=== PATIENT | female | born 1950 | race Caucasian/White ===

== ENCOUNTER 2019-05-15 10:35 | Outpatient (CLI) | payer BC ==
--- NOTE | 2019-05-15 16:17 | NM ---
Radionucleotide three-phase bone scan HISTORY: Knee pain. Lower back pain. Replacement bilateral one year ago. FINDINGS: Blood flow images of the knees show no areas of abnormal uptake. Blood flow images show sym metric heterogeneous uptake about the medial aspect of each knee, with photopenic defects correlating with bilateral knee prostheses. Delayed whole-body images again show uptake around each knee prosthesis. The uptake is very symmetric . Degenerative type uptake of the shoulders and feet. Lower back is within normal limits. IMPRESSION: Osteoarthritic and postoperative findings. No acute abnormalities are demonstrated.
== END 2019-05-15 10:36 | disposition home or self-care (01) ==
LOC: NM 10:35
PROVIDERS: ATTEND Orthopaedic Surgery
DX: T84.032A Mechanical loosening of internal right knee prosthetic joint, initial encounter (principal); T84.033A Mechanical loosening of internal left knee prosthetic joint, initial encounter; M17.0 Bilateral primary osteoarthritis of knee
CPT/HCPCS: 78315; A9503

== ENCOUNTER 2019-11-27 13:33 | Outpatient (CLI) | payer BC | END 2019-11-27 13:34 | disposition home or self-care (01) | LOC: ULT 13:33 | PROVIDERS: ATTEND Internal Medicine | DX: I42.9 Cardiomyopathy, unspecified (principal); I08.3 Combined rheumatic disorders of mitral, aortic and tricuspid valves | CPT/HCPCS: 93306 ==

== ENCOUNTER 2021-05-30 19:30 | Outpatient (CLI) | payer MEDICARE, BC | END 2021-05-30 19:31 | disposition home or self-care (01) | LOC: SLEEPLAB 19:30 | PROVIDERS: ATTEND Internal Medicine | DX: G47.33 Obstructive sleep apnea (adult) (pediatric) (principal); R06.83 Snoring; I50.9 Heart failure, unspecified; G47.10 Hypersomnia, unspecified; I45.4 Nonspecific intraventricular block; E66.9 Obesity, unspecified; Z68.41 Body mass index [BMI] 40.0-44.9, adult | CPT/HCPCS: 95811 ==